=== PATIENT | male | born 1975 | race Caucasian/White ===

== ENCOUNTER → 2023-07-12 | Outpatient (CLI) | payer BC, SELFPAY ==
--- NOTE | 2023-07-12 09:18 | RAD_ITS ---
STUDY: X-RAY - RIGHT SHOULDER REASON FOR EXAM: Male, 47 years old. injury. decreased rom. suspect RTC injury TECHNIQUE: 4 view(s) of the shoulder. COMPARISON: None. FINDINGS: Normal glenohumeral articulation. Normal acromioclavicular joint. Normal acromion. Normal humeral head and visualized proximal humerus. The soft tissue structures are unremarkable. There is no demonstrated fracture. Normal visualized pulmonary apex. RAD/Shoulder min 2 Views IMPRESSION: Normal x-ray examination of the shoulder. Electronically Signed: Martinez Rodas MD at 21:58 EST ,
== END | disposition home or self-care (01) ==
PROVIDERS: PCP Family Medicine; Referring Provider Family Medicine; Visit Provider Family Medicine
DX: M25.511 Pain in right shoulder (principal)
CPT/HCPCS: 73030

== ENCOUNTER → 2023-07-27 | Outpatient (CLI) | payer BC, SELFPAY ==
--- NOTE | 2023-07-27 07:25 | MRI_ITS ---
STUDY: MRI RIGHT SHOULDER REASON FOR EXAM: Male, 47 years old. shoulder pain, rotator cuff injury TECHNIQUE: Standardized fat and water weighted pulse sequences were obtained in all 3 orthogonal planes. COMPARISON: X-ray 07/12/2023 FINDINGS: Severe supraspinatus and infraspinatus tendinosis and peritendinitis is with marked thinning of the tendons but without discrete tear. Associated superior displacement of the humeral head consistent with loss of depressor mechanism. Normal subscapularis tendon. Normal teres minor tendon. There is mild muscular atrophy of the supraspinatus muscle. There is mild muscular atrophy of the infraspinatus muscle. Normal subscapularis muscle. Normal teres minor muscle. Normal glenohumeral articulation. Normal humeral head and visualized proximal humerus. Normal biceps labral complex. Normal intracapsular long biceps tendon. Normal labrum. Normal capsulo- ligamentous complex. Normal rotator interval. There is mild osteoarthritis of the acromioclavicular articulation. There is a Type II morphology (curved), with a neutral orientation. There is no subacromial-subdeltoid bursal fluid. Normal visualized coracohumeral and coracoacromial ligaments. Normal quadrilateral space. Normal axillary space. Normal deltoid muscle. Normal trapezius muscle. MRI/Upper Ext Joint Only(Routine) IMPRESSION: Severe supraspinatus and infraspinatus tendinosis and peritendinitis is with marked thinning of the tendons but no macro tear. Superior displacement of the humeral head consistent with loss of depressor mechanism. Mild supraspinatus and infraspinatus muscular atrophy. Electronically Signed: Burak Chau MD at 22:45 EST ,
--- NOTE | 2023-07-27 07:40 | RAD_ITS ---
EXAM: XR ORBITS FOREIGN BODY CLINICAL INDICATION: POSSIBLE METAL IN EYE, MRI CLEARANCE TECHNIQUE: Frontal view(s) of the orbits. COMPARISON: No relevant prior studies available. FINDINGS: BONES/JOINTS: Unremarkable. No acute fracture. SINUSES: Unremarkable. No air-fluid levels. SOFT TISSUES: Unremarkable. No demonstrated radiopaque foreign body. RAD/Orbits for Foreign Body IMPRESSION: No demonstrated radiopaque foreign body. Electronically Signed: Kapil Villegas MD at 8:22 EST ,
== END | disposition home or self-care (01) ==
LOC: MRI 06:54
PROVIDERS: PCP Family Medicine; Referring Provider Family Medicine; Visit Provider Family Medicine
DX: Z01.818 Encounter for other preprocedural examination (principal); S46.009A Unspecified injury of muscle(s) and tendon(s) of the rotator cuff of unspecified shoulder, initial encounter; X58.XXXA Exposure to other specified factors, initial encounter
CPT/HCPCS: 70030; 73221

== ENCOUNTER 2023-10-03 07:00 | Outpatient (RCR) | payer BC, SELFPAY ==
--- NOTE | 2023-08-15 15:50 | HP.PTEVAL ---
Patient's Visit Information Visit Information Visit Information: MELECIO GRISSOM is a 47 year old M referred to Physical Therapy by Dr. Joselito Casas MD with a diagnosis of R shoulder pain. 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 Treat as a tendinitis/tendinosis and use pain as guide (HEP: banded scap retract OTB, tennis elbow stretch, AAROM ER/IR/FLEX/ABD) Subjective Subjective: Pt presents to PT with R shoulder pain. 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 Pain is in back of shoulder and back of the arm. Pt had MRI recently and showed a lot of tendon inflammation. Pt had cortisone shot 2 weeks ago which helped with pain. 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 Pt reports pain feels different everyday with no predictable pattern. Pt describes pain as dull. In 3 weeks, pt will be done with overhead activities for a while and will be returning to farming. Pt feels weekend and nights are the most painful when he is not working. Now able to sleep better since getting the cortisone shot, 7+ hours. Goals: be able to lift arm over head, decrease pain, getting dressed with no compensations Pain Right Shoulder: Pain Intensity (Out of 10): 2 Pain Intensity Range: 0 and 5 Objective Objective: AROM: 75 abd, 60 flex, 30 deg at 90 deg elbow flex at side, IR to lateral iliac crest (cervical ROM WNL) PROM: Flex to 135 with stretch in lats/post arm, ABD 120 with tightness in bicep/tricep PALPATION: tightness in R UT/levator scap, some pain at ant GH joint line and down biceps tendon, TTP in distal delt and lateral extensor tendons on forearm JOINT PLAY: hypomobile d/t tightness in shoulder musculature, but empty end feel MMT: WNL on LUE, did not test on R d/t pain BELLY PRESS: (-) DROP ARM: (-) but pt had difficulty and fatigue trying to keep arm in place JASON: (+) painful ER LAG: (-) CRANK: (-) tightness at end range ER, not able to achieve test position POSTURE: rounded shoulders Pain overall Balance/Special Test Scores Quick DASH Score: 27.2725 Goals Goal 1:: Pt will achieve full shoulder ROM with <2/10 pain Goal Time Frame: 4-6 Weeks Goal 2:: Pt will be able to don and doff clothing with <2/10 pain Goal Time Frame: 4-6 Weeks Goal 3:: Pt will demonstrate symmetrical shoulder strength with <2/10 pain Goal Time Frame: 8-12 Weeks Goal 4:: Pt will be able to lift 10+lbs overhead with <2/10 pain Goal Time Frame: 8-12 Weeks Rehabilitation Potential Physical Therapy Diagnosis: Pt presents to PT with R shoulder pain, weakness, hypomobility, decreased tissue extensibility, and loss of ROM. Pt would benefit from PT services to increase ROM, strengthen shoulder, and address overall posture when performing heavy work and farm related tasks. Rehabilitation Potential: Good Anticipated Interventions Patient/Client Instruction: Educate patient on: Condition and Plan of Care For the Purpose of:: To decrease pain, To decrease swelling/inflammation, To increase ROM, To improve muscle performance and motor function, To improve ability to perform ADL's, To increase tolerance to activity/condition/position, To improve performance and independence with ADL's, To improve ability of physical actions for home/community/work/leisure, To improve health of tissue, To decrease soft tissue restriction, To increase flexibility/ROM, To assume or resume ADL's, To reduce risk of recurrence, To improve health and function, To foster healthy habits, To improve self management, To prevent re-injury, To improve ability to perform tasks related to life management and To improve tolerance to ADL's Therapeutic Exercise to Include: Strength training, Body mechanics, Postural training, Flexibilty training, Neuromotor development, Passive ROM, Active ROM and Scapular Strength/Stabilization For the Purpose of:: To decrease pain, To decrease swelling/inflammation, To increase ROM, To improve muscle performance and motor function, To improve ability of physical actions for home/community/work/leisure, To assume or resume ADL's, To improve health and function and To improve tolerance to ADL's Manual Therapy Techniques to Include: Mobilization, Passive ROM and Soft tissue mobilization For the Purpose of:: To decrease pain, To decrease swelling/inflammation, To increase ROM, To improve health of tissue, To decrease soft tissue restriction, To increase flexibility/ROM, To improve self management and To improve ability to perform tasks related to life management TENS: Yes Cryotherapy (ice pack, ice massage): Yes Thermo therapy (hot pack): Yes For the Purpose of:: To decrease pain and To decrease swelling/inflammation Text: Thank you for the opportunity to evaluate your patient. For Medicare and Medicare HMO plans, please review the plan of care and approve it. It will need to be FAXED BACK to us at [phone] for Medicare purposes. For Medicare only, by signing this I certify the plan of care. Please let me know if there are questions or concerns regarding this plan of care. Physician Signature: Date:
--- NOTE | 2023-10-03 07:25 | HP.PTREVAL_ITS ---
Re-Evaluation Intro: Dr. Drew Casas MD, It has been my pleasure to treat MELECIO GRISSOM over the last 11 visits for R shoulder pain. Please see the progress note below for an update on the physical therapy plan of care! Subjective Subjective: Pt. reports I was doing better, but I feel like I am going a little backwards. He is back to where he cant sleep very well. Objective Objective/Function: ROM: AROM R shoulder: flexion 85deg, abd 80deg, functional IR L5, functional ER ear. PROM: R shoulder: flexion 110deg, abd 100deg, ER at side 30deg, IR at side 50deg. MMT: R shoulder: ER 3.5#, IR 17.8#, flexion 3.8#. L shoulder: ER 12.9#, IR 18.4#, flexion 21.9#. PT. continues to have marked hypomobility, leathery end feels with PROM as well. He also has marked ER weakness, flexion weakness. Pretty symmetrical IR strength. From his physical signs I would suggest he has a RTC tear. The marked weakness of his external rotators and mech of injury suggest tear. He has had an MRI, but did not show a concrete tear. I did talk with his physician and we decided a follow and possible ortho visit would be good. Plan Plan Plan: I am DCing patient to follow back up with physician at this point in time. I am concerned about his lack of improvement of his strength and ROM. Balance/Gait/Functional tests Balance/Special Test Scores Quick DASH Score: 31.8175 Goals Goals Goal 1:: Pt will achieve full shoulder ROM with <2/10 pain Goal Time Frame: 4-6 Weeks Goal Progress: Not Progressing Goal 2:: Pt will be able to don and doff clothing with <2/10 pain Goal Time Frame: 4-6 Weeks Goal Progress: Progressing Goal 3:: Pt will demonstrate symmetrical shoulder strength with <2/10 pain Goal Time Frame: 8-12 Weeks Goal Progress: Not Progressing Goal 4:: Pt will be able to lift 10+lbs overhead with <2/10 pain Goal Time Frame: 8-12 Weeks Goal Progress: Not Progressing Anticipated Interventions Anticipated Interventions Patient/Client Instruction: Educate patient on: Condition and Plan of Care For the Purpose of:: To decrease pain, To decrease swelling/inflammation, To increase ROM, To improve muscle performance and motor function, To improve ability to perform ADL's, To increase tolerance to activity/condition/position, To improve performance and independence with ADL's, To improve ability of physical actions for home/community/work/leisure, To improve health of tissue, To decrease soft tissue restriction, To increase flexibility/ROM, To assume or resume ADL's, To reduce risk of recurrence, To improve health and function, To foster healthy habits, To improve self management, To prevent re-injury, To improve ability to perform tasks related to life management and To improve tolerance to ADL's Therapeutic Exercise to Include: Strength training, Body mechanics, Postural training, Flexibilty training, Neuromotor development, Passive ROM, Active ROM and Scapular Strength/Stabilization For the Purpose of:: To decrease pain, To decrease swelling/inflammation, To in crease ROM, To improve muscle performance and motor function, To improve ability of physical actions for home/community/work/leisure, To assume or resume ADL's, To improve health and function and To improve tolerance to ADL's Manual Therapy Techniques to Include: Mobilization, Passive ROM and Soft tissue mobilization For the Purpose of:: To decrease pain, To decrease swelling/inflammation, To increase ROM, To improve health of tissue, To decrease soft tissue restriction, To increase flexibility/ROM, To improve self management and To improve ability to perform tasks related to life management TENS: Yes Cryotherapy (ice pack, ice massage): Yes Thermo therapy (hot pack): Yes For the Purpose of:: To decrease pain and To decrease swelling/inflammation Re-Evaluation Ending Re-evaluation ending: Please do not hesitate to contact me at [phone] by phone or if you have questions or concerns regarding this new plan of care! Sincerely, Enrique Suresh DPT
== END 2023-10-03 19:00 | disposition home or self-care (01) ==
LOC: PT 07:00
PROVIDERS: PCP Family Medicine; Referring Provider Family Medicine; Visit Provider Family Medicine
DX: M25.511 Pain in right shoulder (principal)
CPT/HCPCS: 97110; 97140; 97161; 97530